=== PATIENT | male | born 1985 | race Caucasian/White ===

== ENCOUNTER → 2020-07-16 | Outpatient (CLI) | payer OTHER ==
[2020-07-16] MEDS: IOHEXOL 350 MG/ML 100 ML VIAL. IV ONE (08:41)
--- NOTE | 2020-07-16 09:09 | RAD ---
CT angiography of the chest 07/16/2020 8:25 AM Indication: Reason: HX COVID IN OCTOBER 2019, SHORTNESS OF BREATH, CHEST PAIN / Spl. Instructions: / History: Technique: Multiple contiguous axial images were obtained through the chest after administration of i ntravenous iodinated contrast. Coronal, sagittal, and 3-D MIP reformations were created. Comparison: None Findings: There is no filling defect within central pulmonary arteries or evidence of acute pulmonary embolism. Heart size is normal. No pericardial effusion is appreciated. No pathologically enlarged mediastinal lymph nodes are seen. . The thoracic aorta is grossly normal in course and contour. There is no pneu mothorax or pleural effusion. No acute infiltrates are seen. Limited visualization of the upper abdom en demonstrates no acute abnormality. No acute osseous abnormalities are appreciated. Impression: No evidence of acute pulmonary embolism or other acute cardiopulmonary process CT DOSING PQRS STATEMENT: One or more of the following individualized dose reduction techniques were utilized for this examinat ion: 1. Automated exposure control 2. Adjustment of the mA and/or kV according to patient size 3. Use of iterative reconstruction technique Electronically signed by: Janak Marquez MD (07/16/2020 9:06 AM) [id number]
[2020-07-16 10:30] LABS: BASO % 1 % (0-3); EOS # 0.2 x10^3/uL (0.0-0.7); EOS % 4 % (0-3); HEMATOCRIT 41.8 % (39.0-53.0); HEMOGLOBIN 14.5 g/dL (13.0-17.5); LYMPH # 1.3 x10^3/uL (1.0-4.8); LYMPH % 32 % (24-48); MEAN CORPUSCULAR HEMOGLOBIN 32 pg (25-35); MEAN CORPUSCULAR HGB CONC 35 g/dL (31-37); MEAN CORPUSCULAR VOLUME 91 fL (79-100); MONO # 0.7 x10^3/uL (0.0-1.1); MONO % 16 % (0-9); NEUT % 48 % (31-73); PLATELET COUNT 153 x10^3/uL (140-400); RED CELL DISTRIBUTION WIDTH 12.2 % (11.5-14.5); WHITE BLOOD COUNT 4.1 x10^3/uL (4.0-11.0)
[2020-07-16 12:12] LABS: % ATYL 10 % (0-0); % BANDS 4 % (0-9); % BASOS 1 % (0-3); % EOS 2 % (0-5); % LYMPHS 25 % (24-48); % MONOS 9 % (0-10); % SEGS 49 % (35-66)
[2020-07-16 12:25] LABS: PLT ESTIMATE ADEQUATE (ADEQUATE)
== END ==
LOC: CT 08:19
PROVIDERS: ATTEND Internal Medicine Critical Care Medicine
DX: I26.99 Other pulmonary embolism without acute cor pulmonale (principal); R07.9 Chest pain, unspecified; R06.02 Shortness of breath; Z86.16 Personal history of COVID-19
CPT/HCPCS: 36415; 71275; 85007; 85025; Q9967